=== PATIENT | female | born 1990 | race Caucasian/White ===

== ENCOUNTER 2018-09-15 22:21 | Emergency (ER) | payer OTHER ==
[2018-09-15] MEDS ORDERED: Adacel Vial IM ONE ×2 (22:37→22:49)
[2018-09-15] MEDS ORDERED: SILVADENE 50 GM TP ONE ×2 (22:37→22:48)
--- NOTE | 2018-09-15 22:46 | ERPHSYRPT ---
- History of Present Illness Time Seen by Provider: 09/15/18 22:33 Source: patient Exam Limitations: no limitations Physician History: Pt accidentally burnt her right forearm with splashing hot grease tonight at home. She is not sure about her tetanus status, she denies other injury or complaints. Occurred: just prior to arrival Method of Injury: other (hot liquid (grease) splached on her right forearm.) Quality: constant Severity of Pain-Max: mild Severity of Pain-Current: mild Extremities Pain Location: forearm: right Modifying Factors: Improves With: nothing Associated Symptoms: none Allergies/Adverse Reactions: No Known Drug Allergies Allergy (Verified 09/15/18 22:35) - Review of Systems Constitutional: No Symptoms Respiratory: No Symptoms Cardiac: No Symptoms Abdominal/Gastrointestinal: No Symptoms Musculoskeletal: Other (small burn to right forearm.) Skin: No Symptoms Neurological: No Symptoms All Other Systems: Reviewed and Negative - Past Medical History Pertinent Past Medical History: Yes History: Other - Past Surgical History Past Surgical History: Yes - Social History Drug Use: methamphetamines - Physical Exam General Appearance: no apparent distress Eyes, Ears, Nose, Throat Exam: normal ENT inspection Neck Exam: normal inspection, non-tender Cardiovascular/Respiratory Exam: chest non-tender, normal breath sounds, regular rate/rhythm, heart sounds normal Abdominal Exam: non-tender Elbow/Forearm Exam: pain (small area ( 3x4 cm) irregular first degree hung on right volar forearm, no bullae or blisters, other injury or lesions.) Wrist Exam: normal inspection Hand Exam: normal inspection Neuro/Tendon Exam: normal motor functions Mental Status Exam: alert, oriented x 3 Skin Exam: normal color, warm, dry SpO2 Interpretation: normal O2 Delivery: Room Air - Course Nursing assessment & vital signs reviewed: Yes Ordered Tests: Active Orders 24 hr Category Date Time Status Wound Care STAT Care 09/15/18 22:37 Active Medication Summary Discontinued Medications Generic Name Dose Route Start Last Admin Trade Name Freq PRN Reason Stop Dose Admin Diphtheria/Tetanus/Acell Pertussis 0.5 ml 09/15/18 22:37 Adacel Vial IM 09/15/18 22:38 .ONCE ONE Silver Sulfadiazine 50 gm 09/15/18 22:37 Silvadene 50 Gm TP 09/15/18 22:38 STAT ONE - Progress Progress: unchanged Progress Note: 09/15/18 22:44 Pt was given Silvadene and tetanus ( Boostrix ) and discharged home to clean area with saline daily and use Silvadene and follow up with her physician in 2- 3 days. Counseled pt/family regarding: diagnosis, need for follow-up - Departure Departure Disposition: Home Clinical Impression: Burn, forearm, first degree Qualifiers: Encounter type: initial encounter Laterality: right Qualified Code(s): T22.111A - Burn of first degree of right forearm, initial encounter Condition: Stable Critical Care Time: No Instructions: Skin Hung Additional Instructions: Keep area clean, and wash with saline daily, use Silvadene as directed, follow up with your physician in 2-3 days, return if severe pain, swelling, redness, or fever> 102 F!
[2018-09-15 22:48] VITALS: BP 126/85; PULSE 85; O2SAT 98
== END 2018-09-15 23:22 | disposition home or self-care (01) ==
LOC: ED 22:21
DX: T22.111A Burn of first degree of right forearm, initial encounter (principal); X10.2XXA Contact with fats and cooking oils, initial encounter; Z23 Encounter for immunization
CPT/HCPCS: 90471; 90715; 99283; A9270-GY

== ENCOUNTER 2018-09-18 16:01 | Emergency (ER) | payer OTHER ==
[2018-09-18] MEDS ORDERED: BENADRYL 25 MG CAPSULE PO ONE (16:25)
[2018-09-18] MEDS ORDERED: KEFLEX 500 MG PO ONE (16:25)
[2018-09-18] MEDS ORDERED: BENADRYL 25 MG CAPSULE ONE (16:31)
[2018-09-18] MEDS ORDERED: KEFLEX 500 MG ONE (16:31)
--- NOTE | 2018-09-18 16:34 | ERPHSYRPT ---
- History of Present Illness Time Seen by Provider: 09/18/18 16:20 Source: patient Exam Limitations: clinical condition Patient Subjective Stated Complaint: Pt states "I got bit by something a couple of days ago and now my ankle and foot are swollen and tight." Triage Nursing Assessment: Pt presented alert and oriented X 3, skin pwd. Pt ambulates with an upright steady gait, able to speak in clear full sentences. pt right ankle red, swollen, hot to touch. Pt right upper thigh red. Physician History: PATIENT SUSTAINED INSECT BITES TO HER RIGHT ANKLE AND THIGH PAST 2-3 DAYS ASSOCIATED WITH ITCHING AND SWELLING. DENIES DIFFICULTY BREATHING OR SWALLOWING. Timing/Duration: day(s) Quality: itchy Severity: moderate Location: extremities Possible Causes: insect bite Associated Symptoms: edema Allergies/Adverse Reactions: No Known Drug Allergies Allergy (Verified 09/15/18 22:35) Home Medications: No Reportable Medications [No Reported Medications] 09/18/18 [History] Hx Tetanus, Diphtheria Vaccination/Date Given: Yes Hx Influenza Vaccination/Date Given: No Hx Pneumococcal Vaccination/Date Given: No Immunizations Up to Date: Yes - Review of Systems Constitutional: No Symptoms Eyes: No Symptoms Ears, Nose, & Throat: No Symptoms Respiratory: No Symptoms Cardiac: No Symptoms Skin: Cellulitis, Skin Lesions Neurological: No Symptoms Psychological: No Symptoms Endocrine: No Symptoms - Past Medical History Pertinent Past Medical History: No History: Other - Past Surgical History Past Surgical History: Yes Other Surgical History: renal stent - Social History Smoking Status: Current every day smoker How long have you smoked: 8 years Exposure to second hand smoke: Yes Drug Use: methamphetamines Patient Lives Alone: No - Female History Hx Last Menstrual Period: 08/05/2018 Hx Now: No - Nursing Vital Signs Nursing Vital Signs: Initial Vital Signs Temperature 97.5 F 09/18/18 16:08 Pulse Rate 94 H 09/18/18 16:08 Respiratory Rate 18 09/18/18 16:08 Blood Pressure 116/84 09/18/18 16:08 O2 Sat by Pulse Oximetry 100 09/18/18 16:08 Pain Scale Pain Intensity 0 - Physical Exam General Appearance: no apparent distress Eye Exam: PERRL/EOMI Ears, Nose, Throat Exam: normal ENT inspection Neck Exam: normal inspection Respiratory Exam: normal breath sounds Cardiovascular Exam: regular rate/rhythm Extremity Exam: swelling (THERE IS ERYTHEMA WITH SWELLING LATERAL MALLEOLUS SLIGHT WARMTH, PEDIS PULSE 2+, TENDERNESS RIGHT LATERAL MID THIGH, WARMTH SLIGHT SWELLING.), tenderness SpO2: 100 Ordered Tests: Medication Summary Discontinued Medications Generic Name Dose Route Start Last Admin Trade Name Jackq PRN Reason Stop Dose Admin Cephalexin HCl 500 mg 09/18/18 16:25 Keflex 500 Mg PO 09/18/18 16:26 STAT ONE Diphenhydramine HCl 50 mg 09/18/18 16:25 Benadryl 25 Mg Capsule PO 09/18/18 16:26 STAT ONE - Progress Progress Note: 09/18/18 16:33 KEFLEX 500MG ORALLY, BENADRYL 50MG ORALLY - Departure Departure Disposition: Home Clinical Impression: CELLULITIS 2ND TO INSECT BITES Condition: Stable Critical Care Time: No Referrals: LEANNA LINDSAY [Primary Care Provider] - Additional Instructions: PREDNISONE 20MG, 2 TABLETS DAILY FOR 4 DAYS. ANTIBIOTIC KEFLEX 500MG EVERY 6 HOURS FOR 10 DAYS. TAKE OVER THE COUNTER BENADRYL 50MG EVERY 4 HOURS FOR ITCHING. CONSULT YOUR PRIMARY CARE PROVIDER FOR FOLLOWUP IN 4-5 DAYS.
[2018-09-18 17:03] VITALS: BP 115/73; PULSE 82; O2SAT 99
== END 2018-09-18 17:12 | disposition home or self-care (01) ==
LOC: ED 16:01
DX: S90.561A Insect bite (nonvenomous), right ankle, initial encounter (principal); S70.361A Insect bite (nonvenomous), right thigh, initial encounter; L03.115 Cellulitis of right lower limb
CPT/HCPCS: 99283; A9270-GY

== ENCOUNTER 2018-11-21 08:12 | Emergency (ER) | payer MEDICAID, OTHER ==
[2018-11-21 08:23] VITALS: BP 111/65; PULSE 86; O2SAT 97
--- NOTE | 2018-11-21 08:36 | ERPHSYRPT ---
- History of Present Illness Time Seen by Provider: 11/21/18 08:25 Source: patient Exam Limitations: no limitations Patient Subjective Stated Complaint: pt here for pain to left foot from working out on sat, pain to lop of foot Triage Nursing Assessment: pt alert, walked in , resp easy .skin w/d/p, no edema or bruising to left foot Physician History: 28 y/o white female presents with 2 day h/o left foot pain, dorsal aspect. pt was doing fitness exercises and felt pain. kept walking on it. this am hurts worse. Method of Injury: sports injury Occurred: days ago (2) Quality: aching, burning Severity of Pain-Max: mild Severity of Pain-Current: mild Lower Extremities Pain: foot: right Modifying Factors: Improves With: movement (hurts) Allergies/Adverse Reactions: No Known Drug Allergies Allergy (Verified 11/21/18 08:23) Home Medications: No Reportable Medications [No Reported Medications] 09/18/18 [History] Hx Tetanus, Diphtheria Vaccination/Date Given: No Hx Influenza Vaccination/Date Given: No Hx Pneumococcal Vaccination/Date Given: No Immunizations Up to Date: Yes - Review of Systems Constitutional: No Symptoms Eyes: No Symptoms Ears, Nose, & Throat: No Symptoms Respiratory: No Symptoms Cardiac: No Symptoms Abdominal/Gastrointestinal: No Symptoms Genitourinary Symptoms: No Symptoms Musculoskeletal: Injury (left foot pain) Skin: No Symptoms Neurological: No Symptoms Psychological: No Symptoms Endocrine: No Symptoms Hematologic/Lymphatic: No Symptoms Immunological/Allergic: No Symptoms All Other Systems: Reviewed and Negative - Past Medical History Pertinent Past Medical History: No Neurological History: No Pertinent History ENT History: No Pertinent History Cardiac History: No Pertinent History Respiratory History: No Pertinent History Endocrine Medical History: No Pertinent History Musculoskeletal History: No Pertinent History GI Medical History: No Pertinent History History: Other Psycho-Social History: No Pertinent History Female Reproductive Disorders: No Pertinent History - Past Surgical History Past Surgical History: Yes Neuro Surgical History: No Pertinent History Cardiac: No Pertinent History Respiratory: No Pertinent History Gastrointestinal: No Pertinent History Genitourinary: No Pertinent History Musculoskeletal: No Pertinent History Female Surgical History: No Pertinent History Other Surgical History: kidney stent 2011 - Social History Smoking Status: Current every day smoker How long have you smoked: 8 years Exposure to second hand smoke: No Drug Use: none Patient Lives Alone: No - Female History Hx Last Menstrual Period: nov 01 Hx Now: No - Nursing Vital Signs Nursing Vital Signs: Initial Vital Signs Temperature 97.8 F 11/21/18 08:16 Pulse Rate 86 11/21/18 08:16 Respiratory Rate 16 11/21/18 08:16 Blood Pressure 111/65 11/21/18 08:16 O2 Sat by Pulse Oximetry 97 11/21/18 08:16 Pain Scale Pain Intensity 8 - Physical Exam General Appearance: no apparent distress, alert, anxiety Eyes, Ears, Nose, Throat Exam: normal ENT inspection, moist mucous membranes Neck Exam: normal inspection Cardiovascular/Respiratory Exam: chest non-tender Gastrointestinal/Abdominal Exam: non-tender Back Exam: normal inspection, normal range of motion, No CVA tenderness, No vertebral tenderness Hips Exam: bilateral: non-tender, normal inspection, normal range of motion, no evidence of injury Legs Exam: bilateral leg: non-tender, normal inspection, normal range of motion , no evidence of injury Knees Exam: bilateral knee: non-tender, normal inspection, normal range of motion, no evidence of injury Ankle Exam: right ankle: non-tender, normal inspection, normal range of motion, no evidence of injury, left ankle: bone tenderness, limited range of motion, pain, soft tissue tenderness, swelling Foot Exam: right foot: non-tender, left foot: normal inspection, normal range of motion, no evidence of injury, pain, soft tissue tenderness Neuro/Tendon Exam: normal sensation, normal motor functions, normal tendon functions, responds to pain, no evidence tendon injury Mental Status Exam: alert, oriented x 3, cooperative Skin Exam: normal color, warm, dry SpO2 Interpretation: normal SpO2: 97 O2 Delivery: Room Air - Course Nursing assessment & vital signs reviewed: Yes Ordered Tests: Active Orders 24 hr Category Date Time Status FOOT (MINIMUM 3 VIEWS) Stat Exams 11/21/18 08:43 Completed - Progress Progress: unchanged Progress Note: 11/21/18 09:12 xray left foot-no acute fx or dislocation Counseled pt/family regarding: diagnosis, need for follow-up, rad results - Departure Departure Disposition: Home Clinical Impression: Left foot pain Condition: Stable Critical Care Time: No Additional Instructions: ice pack to area 3 times daily for 3 days. tylenol and ibuprofen for pain. follow up with primary doctor for persistent symptoms
--- NOTE | 2018-11-21 09:11 | XRAY ---
Indication: Lateral foot pain. Comparison: None 3 nonweightbearing views of the left foot obtained. No bony, articular, or soft tissue abnormalities.
== END 2018-11-21 09:32 | disposition home or self-care (01) ==
LOC: ED 08:12
DX: M79.672 Pain in left foot (principal)
CPT/HCPCS: 73630; 99283